=== PATIENT | female | born 1945 | race Caucasian/White ===

== ENCOUNTER 2016-11-06 09:31 | Emergency (ER) | payer MEDICARE ==
[2016-11-06] MEDS ORDERED: AMOX 875 MG/CLAV 125 MG 1 EACH TABLET ONE (10:24)
[2016-11-06] MEDS ORDERED: ACETAMINOPHEN 500 MG TABLET ONE (10:24)
== END 2016-11-06 10:45 | disposition home or self-care (01) ==
LOC: ED 09:31
DX: S81.012A Laceration without foreign body, left knee, initial encounter (principal); E66.9 Obesity, unspecified; Z87.891 Personal history of nicotine dependence; W01.0XXA Fall on same level from slipping, tripping and stumbling without subsequent striking against object, initial encounter; Y93.K1 Activity, walking an animal; Y92.007 Garden or yard of unspecified non-institutional (private) residence as the place of occurrence of the external cause
CPT/HCPCS: 99283 ×2; 12032 ×2; A9270 ×2